=== PATIENT | male | born 1960 | race Caucasian/White ===

== ENCOUNTER 2023-09-17 09:46 | Inpatient (IN) | payer BC, OTHER ==
[~2023-09-17] VITALS: Ht 175.3 cm; Wt 44.2 kg
[2023-09-17 10:14] VITALS: PULSE 82; RESP 19; O2SAT 97
[2023-09-17] MEDS: SODIUM CHLORIDE 0.9% 1,000 ML IV ONE (10:17)
[2023-09-17 10:43] LABS: Basophils # (auto) 0 10 ^3/uL (0-0.2); Eosinophils # (auto) 0.1 10 ^3/uL (0-0.8); Lymphocytes # (auto) 0.1 10 ^3/uL (0.4-5.4); Monocytes # (auto) 0.6 10 ^3/uL (0-1.3)
[2023-09-17 10:45] LABS: Basophils % (auto) 0.3 % (0.0-2.0); Eosinophils % (auto) 0.6 % (0.0-7.0); Hematocrit 22.9 % (41.0-53.0); Hemoglobin 7.8 g/dL (13.5-17.5); Lymphocytes % (auto) 1.5 % (10.0-50.0); Mean Corpuscular Hemoglobin 31.7 pg (28.0-32.0); Mean Corpuscular Volume 93.3 fL (80.0-100.0); Monocytes % (auto) 7.2 % (0.0-12.0); Neutrophils # (auto) 7.1 10 ^3/uL (1.6-8.6); Neutrophils % (auto) 90.4 % (37.0-80.0); Red Blood Cells 2.46 10^6/uL (4.5-5.90); Red Cell Distribution Width 16.8 % (11.8-14.3); White Blood Cell 7.8 10^3/uL (4.4-10.8)
[2023-09-17 10:54] LABS: Alanine Aminotransferase 15 U/L (7-40); Albumin 3.7 g/dL (3.2-4.8); Alkaline Phosphatase 137 U/L (46-116); Anion Gap 4 (5-15); Aspartate Aminotransferase 18 U/L (13-40); Bilirubin, Total 0.3 mg/dL (0.2-1.0); Blood Urea Nitrogen 18 mg/dL (9-23); Calcium 9.2 mg/dL (8.5-10.1); Carbon Dioxide 30 mmol/L (20-30); Chloride 104 mmol/L (98-107); Glucose 83 mg/dL (74-106); Potassium 4.2 mmol/L (3.5-5.1); Sodium 138 mmol/L (136-145); Total Protein 5.8 g/dL (5.7-8.2)
[2023-09-17 11:21] LABS: Urine Bacteria None Seen /hpf (None Seen)
[2023-09-17 11:56] LABS: Urine Blood Negative /uL (Negative); Urine Clarity Clear (Clear); Urine Color Light-Yellow (Yellow); Urine Mucus FEW (None Seen); Urine Protein, UAD Negative (Negative); Urine Specific Gravity 1.021 (1.001-1.035); Urine Urobilinogen Normal (Negative); Urine WBC 1 /hpf (0 - 3)
[2023-09-17] MEDS ORDERED: ONDANSETRON HCL 4 MG/2 ML VIAL IV PRN (13:45)
[2023-09-17] MEDS ORDERED: HYDROcodone-ACET 5/325MG TAB PO PRN (13:45)
[2023-09-17] MEDS ORDERED: DOCUSATE SOD 100 MG CAP PO PRN (13:45)
[2023-09-17] MEDS: SODIUM CHLOR 0.9% PF (SALINE LOCK) 10ML VIAL/SYR IV SCH (14:02)
[2023-09-17] MEDS ORDERED: NITROGLYCERIN 0.4 MG SL TAB SL PRN (15:00)
[2023-09-17] MEDS ORDERED: MORPHINE SULFATE INJ 2 MG/ml SYRG IV PRN (15:00)
[2023-09-17] MEDS: ACETAMINOPHEN 325 MG TAB PO PRN (20:30)
[2023-09-18] VITALS (10 sets, daily range): BP systolic 107–149; BP diastolic 63–77; PULSE 88–120; RESP 15–22; TEMP 97.4–98.6; O2SAT 91–97
[2023-09-18] MEDS ORDERED: PILO5TAB10 (01:09)
[2023-09-18] MEDS ORDERED: SERT-289 PO (01:09)
[2023-09-18] MEDS ORDERED: MAGN400T40 PO (01:09)
[2023-09-18] MEDS ORDERED: CYCL-614 PO (01:09)
[2023-09-18] MEDS ORDERED: IBUP-1455 PO (01:09)
[2023-09-18 06:40] LABS: Basophils # (auto) 0 10 ^3/uL (0-0.2); Basophils % (auto) 0.3 % (0.0-2.0); Eosinophils # (auto) 0 10 ^3/uL (0-0.8); Eosinophils % (auto) 0.2 % (0.0-7.0); Lymphocytes # (auto) 0.1 10 ^3/uL (0.4-5.4); Neutrophils # (auto) 11.5 10 ^3/uL (1.6-8.6); White Blood Cell 12.4 10^3/uL (4.4-10.8)
[2023-09-18 06:47] LABS: Hematocrit 24.7 % (41.0-53.0); Hemoglobin 8.1 g/dL (13.5-17.5); Lymphocytes % (auto) 0.9 % (10.0-50.0); Mean Corpuscular Hemoglobin 30.7 pg (28.0-32.0); Mean Corpuscular Hgb Conc. 32.9 g/dL (32.0-36.0); Mean Corpuscular Volume 93.3 fL (80.0-100.0); Monocytes # (auto) 0.8 10 ^3/uL (0-1.3); Monocytes % (auto) 6.2 % (0.0-12.0); Neutrophils % (auto) 92.4 % (37.0-80.0); Red Blood Cells 2.65 10^6/uL (4.5-5.90); Red Cell Distribution Width 16.7 % (11.8-14.3)
[2023-09-18 06:58] LABS: Alanine Aminotransferase 13 U/L (7-40); Alkaline Phosphatase 131 U/L (46-116); Anion Gap 5 (5-15); BUN/Creatinine Ratio 30.2 (10.0-20.0); Blood Urea Nitrogen 16 mg/dL (9-23); Calcium 9.3 mg/dL (8.7-10.4); Carbon Dioxide 28 mmol/L (20-30); Chloride 103 mmol/L (98-107); Glucose 92 mg/dL (74-106); Potassium 4.2 mmol/L (3.5-5.1); Sodium 136 mmol/L (136-145)
[2023-09-18 06:59] LABS: Albumin 3.7 g/dL (3.2-4.8); Aspartate Aminotransferase 19 U/L (13-40); Bilirubin, Total 0.4 mg/dL (0.2-1.0); Total Protein 5.9 g/dL (5.7-8.2)
[2023-09-18] MEDS: MULTIPLE VITAMIN TAB PO SCH (10:00)
[2023-09-18] MEDS ORDERED: Pivot 1.5 Cal One Liter GT SCH (14:45)
[2023-09-18] MEDS ORDERED: MAGNESIUM OXIDE 400 MG TAB PO ONE (14:45)
[2023-09-18] MEDS ORDERED: HYDROcodone-ACET 5/325MG TAB GT PRN (17:15)
[2023-09-18] MEDS: MAGNESIUM OXIDE 400 MG TAB GT ONE (17:26)
[2023-09-18] MEDS ORDERED: TAMSULOSIN HYDROCHLORIDE 0.4 MG CAP PO SCH (18:00)
[2023-09-18] MEDS: SERTRALINE HCL 50 MG TAB GT SCH (21:09)
[2023-09-18] MEDS: MAGNESIUM OXIDE 400 MG TAB GT SCH (21:09)
[2023-09-18] MEDS: CYCLOBENZAPRINE HCL 10 MG TAB GT SCH (21:10)
[2023-09-18] MEDS ORDERED: CYCLOBENZAPRINE HCL 10 MG TAB PO SCH (22:00)
[2023-09-18] MEDS ORDERED: SERTRALINE HCL 50 MG TAB PO SCH (22:00)
[2023-09-18] MEDS ORDERED: MAGNESIUM OXIDE 400 MG TAB PO SCH (22:00)
[2023-09-19] VITALS (7 sets, daily range): BP systolic 91–128; BP diastolic 53–78; PULSE 80–117; RESP 16–23; TEMP 97.4–98.8; O2SAT 95–99
[2023-09-19 07:25] LABS: Anion Gap 5 (5-15); Carbon Dioxide 29 mmol/L (20-30); Chloride 101 mmol/L (98-107); Potassium 4.1 mmol/L (3.5-5.1); Sodium 135 mmol/L (136-145)
[2023-09-19 07:26] LABS: Calcium 9.4 mg/dL (8.5-10.1)
[2023-09-19 07:31] LABS: Blood Urea Nitrogen 16 mg/dL (9-23); Glucose 112 mg/dL (74-106); Magnesium 1.9 mg/dL (1.6-2.6)
[2023-09-19 07:36] LABS: Basophils # (auto) 0 10 ^3/uL (0-0.2); Basophils % (auto) 0.2 % (0.0-2.0); Eosinophils # (auto) 0 10 ^3/uL (0-0.8); Eosinophils % (auto) 0.1 % (0.0-7.0); Hematocrit 26.1 % (41.0-53.0); Hemoglobin 8.6 g/dL (13.5-17.5); Lymphocytes # (auto) 0.2 10 ^3/uL (0.4-5.4); Lymphocytes % (auto) 1.1 % (10.0-50.0); Mean Corpuscular Hemoglobin 30.6 pg (28.0-32.0); Mean Corpuscular Hgb Conc. 32.9 g/dL (32.0-36.0); Monocytes # (auto) 1.2 10 ^3/uL (0-1.3); Monocytes % (auto) 8.4 % (0.0-12.0); Neutrophils # (auto) 12.9 10 ^3/uL (1.6-8.6); Neutrophils % (auto) 90.2 % (37.0-80.0); Red Blood Cells 2.81 10^6/uL (4.5-5.90); Red Cell Distribution Width 16.4 % (11.8-14.3); White Blood Cell 14.3 10^3/uL (4.4-10.8)
[2023-09-19] MEDS: DOCUSATE ORAL LIQUID 100 MG/10 ML UD GT ONE (12:51)
[2023-09-19] MEDS: TAMSULOSIN HYDROCHLORIDE 0.4 MG CAP PO ONE (13:08)
[2023-09-19] MEDS: Pivot 1.5 Cal One Liter GT SCH (13:09)
[2023-09-19] MEDS: LACTULOSE 20Gm/30ML SOLN GT ONE (13:31)
[2023-09-19] MEDS: TAMSULOSIN HYDROCHLORIDE 0.4 MG CAP PO SCH (18:30)
[2023-09-19] MEDS: DOCUSATE ORAL LIQUID 100 MG/10 ML UD GT SCH (22:02)
[2023-09-20] VITALS (8 sets, daily range): BP systolic 98–136; BP diastolic 51–74; PULSE 84–95; RESP 16–20; TEMP 97.4–98.2; O2SAT 95–100
[2023-09-20 07:25] LABS: Calcium 9.6 mg/dL (8.5-10.1); Chloride 103 mmol/L (98-107); Potassium 3.8 mmol/L (3.5-5.1); Sodium 136 mmol/L (136-145)
[2023-09-20 07:26] LABS: Anion Gap 3 (5-15); Carbon Dioxide 30 mmol/L (20-30)
[2023-09-20 07:31] LABS: BUN/Creatinine Ratio 43.8 (10.0-20.0); Blood Urea Nitrogen 21 mg/dL (9-23); Glucose 138 mg/dL (74-106)
[2023-09-20 07:34] LABS: Hemoglobin 8.1 g/dL (13.5-17.5); Mean Corpuscular Hemoglobin 30.4 pg (28.0-32.0); Mean Corpuscular Hgb Conc. 31.3 g/dL (32.0-36.0); Mean Corpuscular Volume 97.4 fL (80.0-100.0); Red Blood Cells 2.67 10^6/uL (4.5-5.90); Red Cell Distribution Width 16.8 % (11.8-14.3); White Blood Cell 11.2 10^3/uL (4.4-10.8)
[2023-09-20 07:37] LABS: Basophils % (manual) 0 (0.0-2.0); Blast Cells 0; Eosinophils % (manual) 0 (0-7); Metamyelocytes % 0; Myelocytes % 0; Promyelocytes % 0; Reactive Lymphocytes 0
[2023-09-20 08:46] LABS: Band Neutrophils % (manual) 27; Lymphocytes % (manual) 1 (10.0-50.0); Monocytes % (manual) 7 (0-12)
[2023-09-20 08:47] LABS: Platelet Estimate Adequate
[2023-09-20] MEDS: LACTULOSE 20Gm/30ML SOLN GT SCH (09:32)
[2023-09-20] MEDS ORDERED: TAMS-35 PO (13:22)
[2023-09-21 01:00] VITALS: BP 125/69; PULSE 88; RESP 18; TEMP 97.4; O2SAT 96
[2023-09-21 05:00] VITALS: BP 125/43; PULSE 95; RESP 18; TEMP 98.2; O2SAT 97
[2023-09-21 08:00] VITALS: PULSE 87; RESP 18; O2SAT 97
[2023-09-21 09:00] VITALS: BP 110/60; PULSE 87; RESP 16; TEMP 97.7; O2SAT 97
[2023-09-21 13:00] VITALS: BP 127/73; PULSE 91; RESP 17; TEMP 98.1; O2SAT 95
== END 2023-09-21 15:00 | disposition home or self-care (01) | DRG 641 ==
LOC: ER 09:46 → EDBD 09:46 → EDUNIT# 09:46 → TELE 14:52 → TELE-WESTW 23:55
PROVIDERS: ADMIT Nurse Practitioner Family; ATTEND Internal Medicine Geriatric Medicine
DX: R62.7 Adult failure to thrive (principal); C78.7 Secondary malignant neoplasm of liver and intrahepatic bile duct; C79.51 Secondary malignant neoplasm of bone; Z68.1 Body mass index [BMI] 19.9 or less, adult; C14.0 Malignant neoplasm of pharynx, unspecified; L65.9 Nonscarring hair loss, unspecified; N40.1 Benign prostatic hyperplasia with lower urinary tract symptoms; D63.8 Anemia in other chronic diseases classified elsewhere; R33.8 Other retention of urine; Z79.899 Other long term (current) drug therapy; Z93.1 Gastrostomy status; Z87.891 Personal history of nicotine dependence
CPT/HCPCS: 36415; 71045; 80048; 80053; 81001; 83735; 84484; 85007; 85025; 85027; 86850; 86900; 86901; 93005; 96361; 96374; 97110; 97116; 97163; G0378